=== PATIENT | male | born 1955 | race Caucasian/White ===

== ENCOUNTER → 2016-07-02 | Outpatient (CLI) | payer OTHER ==
[~2016-07-02] MED LIST: ACET1TAB84 PO; AMLO-110 PO; ATV/1 PO; CLOTLOT2 TOP; CLR10 PO; DEXT5LIQ23 PO; FLUO20CA35 PO; HYDR25TA4 PO; IMD/2 PO; LORA-741 PO; LOSA50TA6 PO; MELO7.5T5 PO; METO50TA7 PO; ONDA4TAB10 SL; PERP1TAB PO; POTA10CA28 PO; THIO1CAP PO
[2016-07-02 17:18] LABS: BLOOD UREA NITROGEN 17 mg/dl (7-18); BUN/CREATININE RATIO 16.9 (10-20); CALCIUM 8.9 mg/dl (8.5-10.1); CARBON DIOXIDE 27 mmol/L (21-32); CHLORIDE 100 mmol/L (98-107); GLUCOSE 94 mg/dl (70-99); MAGNESIUM 2.1 mg/dl (1.8-2.4); POTASSIUM 3.7 mmol/L (3.5-5.1); SODIUM 137 mmol/L (136-145)
== END | disposition home or self-care (01) ==
LOC: C.LAB1850 10:49
PROVIDERS: ATTEND Internal Medicine Nephrology
DX: E87.1 Hypo-osmolality and hyponatremia (principal)

== ENCOUNTER 2016-07-13 18:39 | Emergency (ER) | payer OTHER ==
[~2016-07-13] VITALS: Ht 170.2 cm; Wt 97.7 kg
[~2016-07-13 18:39] MED LIST changes: -ACET1TAB84 PO; -AMLO-110 PO; -ATV/1 PO; -CLR10 PO; -DEXT5LIQ23 PO; -HYDR25TA4 PO; -IMD/2 PO; -LORA-741 PO; -MELO7.5T5 PO; -METO50TA7 PO; -ONDA4TAB10 SL; -PERP1TAB PO; -POTA10CA28 PO
[2016-07-13 18:40] VITALS: TEMP 37.1; Ht 170.2 cm; Wt 97.7 kg
[2016-07-13] MEDS ORDERED: LORAZEPAM 2 MG/ML 1 ML VIAL IV STA (18:45)
[2016-07-13] MEDS ORDERED: SODIUM CHLORIDE 0.9% 1000ML 1,000 ML IV STA (18:45)
[2016-07-13] MEDS ORDERED: ONDANSETRON INJ 2 MG/ML 2 ML VIAL IV STA (18:45)
--- NOTE | 2016-07-13 19:11 | DIAGNOSTIC IMAGING REPORT ---
SINGLE VIEW CHEST CLINICAL HISTORY: Atypical chest pain. Nausea and vomiting FINDINGS: An AP, portable, upright chest radiograph is obtained. No prior studies are available for comparison at the time of dictation. The examination is significantly degraded by portable technique and patient rotation. The heart is enlarged and there is pulmonary vascular congestion. No airspace consolidation, large pleural effusion, or pneumothorax is seen. The skeletal structures are osteopenic. The bony thorax is grossly intact. IMPRESSION: Cardiomegaly with evidence of congestive failure. Electronically signed by: Haile Zavaleta M.D. 07/13/2016 7:09 PM Dictated Date/Time: 07/13/2016 7:08 PM
[2016-07-13] MEDS ORDERED: FLUO20CA35 PO (19:28)
[2016-07-13] MEDS ORDERED: LOSA50TA6 PO (19:28)
[2016-07-13] MEDS ORDERED: LORA-741 PO (19:28)
[2016-07-13] MEDS ORDERED: DEXT5LIQ23 PO (19:28)
[2016-07-13] MEDS ORDERED: CLR10 PO (19:28)
[2016-07-13] MEDS ORDERED: IMD/2 PO (19:28)
[2016-07-13] MEDS ORDERED: POTA10CA28 PO (19:28)
[2016-07-13] MEDS ORDERED: ATV/1 PO (19:28)
[2016-07-13] MEDS ORDERED: METO50TA7 PO (19:28)
[2016-07-13] MEDS ORDERED: AMLO-110 PO (19:28)
[2016-07-13] MEDS ORDERED: ACET1TAB84 PO (19:28)
[2016-07-13] MEDS ORDERED: HYDR25TA4 PO (19:28)
[2016-07-13] MEDS ORDERED: PERP1TAB PO (19:28)
[2016-07-13] MEDS ORDERED: MELO7.5T5 PO (19:28)
[2016-07-13 19:35] LABS: BASO % 0.1 %; BASO ABS # 0.02 K/uL (0-0.2); COMPLETE YES; EOS % 0.4 %; HEMATOCRIT 37.8 % (42-52); IG% 0.3 %; LYMPH % 10.2 %; LYMPH ABS # 1.38 K/uL (1.2-3.4); MEAN CELL VOLUME 82.7 fL (80-100); MEAN CORPUSCULAR HEMOGLOBIN 30.4 pg (25-34); MEAN CORPUSCULAR HGB CONC 36.8 g/dl (32-36); MEAN PLATELET VOLUME 9.4 fL (7.4-10.4); MONO % 5.2 %; NEUT % 83.8 %; PLATELET COUNT 224 K/uL (130-400); RED BLOOD COUNT 4.57 M/uL (4.7-6.1); WHITE BLOOD COUNT 13.48 K/uL (4.8-10.8)
[2016-07-13 19:56] LABS: ALT/SGPT 29 U/L (12-78); AST/SGOT 22 U/L (15-37); BLOOD UREA NITROGEN 15 mg/dl (7-18); BUN/CREATININE RATIO 15.1 (10-20); CALCIUM 8.7 mg/dl (8.5-10.1); CARBON DIOXIDE 28 mmol/L (21-32); CHLORIDE 92 mmol/L (98-107); CREATININE 0.99 mg/dl (0.60-1.40); GLUCOSE 116 mg/dl (70-99); POTASSIUM 3.2 mmol/L (3.5-5.1); SODIUM 129 mmol/L (136-145)
[2016-07-13 20:02] LABS: ALKALINE PHOSPHATASE 78 U/L (45-117); CKMB/CK RATIO 1.5 (0-3.0)
--- NOTE | 2016-07-13 20:21 | EMERGENCY ROOM VISIT NOTE ---
History Report prepared by Carolina: Asad Giraldo Under the Supervision of: Dr. Segundo Pavon M.D. First contact with patient: 18:40 Stated Complaint: NAUSEA, VOMITING, ANXIETY History of Present Illness The patient is a 61 year old male with MR who presents to the Emergency Room with complaints of sudden anxiety beginning several hours prior to arrival. He associates dizziness, nausea, and vomiting with today's symptoms. As per EMS, the patient has appeared for agitated than usual. He notes the patient went from 0.5 mg Lorazepam a day to a total of 1.5 mg Lorazepam a day that is split into a 1 mg and 0.5 mg dose. The patient notes he had a headache earlier today at work, but it has resolved. He denies abdominal pain. 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 Review of Systems See HPI for pertinent positives & negatives. A total of 10 systems reviewed and were otherwise negative. Past Medical & Surgical Medical Problems: (1) Benign hypertension (2) Mental retardation Family History Patient reports no known family medical history. Social History Alcohol Use: none Drug Use: none Marital Status: single Housing Status: lives with family Occupation Status: employed Current/Historical Medications Scheduled Amlodipine (Norvasc), 7.5 MG PO QAM Fluoxetine (Prozac), 20 MG PO QAM Hydrochlorothiazide (Hctz), 25 MG PO DAILY Loperamide Hcl (Imodium), 2 MG PO UD Loratadine (Claritin), 10 MG PO DAILY Lorazepam (Ativan), 1 MG PO QAM Lorazepam (Ativan), 0.5 MG PO PM Losartan Potassium (Cozaar), 50 MG PO QAM Meloxicam (Mobic), 7.5 MG PO BID Metoprolol Succ (Toprol Xl) (Toprol-Xl), 50 MG PO DAILY Ondasetron Odt (Zofran Odt), 4 MG SL Q6H Perphenazine (Trilafon), 8 MG PO BID Potassium Chloride (Micro-K Ext Rel), 10 MEQ PO BID Scheduled PRN Acetaminophen (Tylenol Arthritis Ext Rel), 650 MG PO Q6H PRN for Pain Dextromethorphan Polistirex (Delsym), 10 ML PO Q12H PRN for Cough Physical Exam Vital Signs Date Time Temp Pulse Resp B/P Pulse Ox O2 Delivery O2 Flow Rate FiO2 07/13/16 20:59 63 22 136/74 98 07/13/16 18:40 37.1 61 22 156/92 98 Room Air Physical Exam GENERAL: Patient is very anxious appearing and in moderate distress. HEENT: No acute trauma, normocephalic atraumatic, mucous membranes moist, no nasal congestion, no scleral icterus. NECK: No stridor, no adenopathy, no meningismus, trachea is midline. LUNGS: Tachypneic. Clear to auscultation and equal bilaterally. No wheeze, no rhonchi. HEART: Regular rate and rhythm. No murmurs, rubs, gallops appreciated. ABDOMEN: Soft, nontender, bowel sounds positive, no masses appreciated, no peritonitis. BACK: No midline tenderness, no CVA tenderness EXTREMITIES: Normal motion all extremities, no cyanosis, no edema. NEUROLOGIC: Anxious appearing. MR. Alert and oriented. SKIN: No rash, no jaundice, no diaphoresis. Medical Decision & Procedures ER Provider Diagnostic Interpretation: X ray results are stated below per my interpretation and the radiologist's interpretation. SINGLE VIEW CHEST CLINICAL HISTORY: Atypical chest pain. Nausea and vomiting FINDINGS: An AP, portable, upright chest radiograph is obtained. No prior studies are available for comparison at the time of dictation. The examination is significantly degraded by portable technique and patient rotation. The heart is enlarged and there is pulmonary vascular congestion. No airspace consolidation, large pleural effusion, or pneumothorax is seen. The skeletal structures are osteopenic. The bony thorax is grossly intact. IMPRESSION: Cardiomegaly with evidence of congestive failure. Electronically signed by: Haile Zavaleta M.D. 07/13/2016 7:09 PM Laboratory Results 07/13/16 19:20 Red Blood Count 4.57, Mean Corpuscular Volume 82.7, Mean Corpuscular Hemoglobin 30.4, Mean Corpuscular Hemoglobin Concent 36.8, Mean Platelet Volume 9.4, Neutrophils (%) (Auto) 83.8, Lymphocytes (%) (Auto) 10.2, Monocytes (%) (Auto) 5.2, Eosinophils (%) (Auto) 0.4, Basophils (%) (Auto) 0.1, Neutrophils # (Auto) 11.29, Lymphocytes # (Auto) 1.38, Monocytes # (Auto) 0.70, Eosinophils # (Auto) 0.05, Basophils # (Auto) 0.02 07/13/16 19:20 Test 07/13/16 19:20 White Blood Count 13.48 K/uL (4.8-10.8) Red Blood Count 4.57 M/uL (4.7-6.1) Hemoglobin 13.9 g/dL (14.0-18.0) Hematocrit 37.8 % (42-52) Mean Corpuscular Volume 82.7 fL (80-100) Mean Corpuscular Hemoglobin 30.4 pg (25-34) Mean Corpuscular Hemoglobin Concent 36.8 g/dl (32-36) Platelet Count 224 K/uL (130-400) Mean Platelet Volume 9.4 fL (7.4-10.4) Neutrophils (%) (Auto) 83.8 % Lymphocytes (%) (Auto) 10.2 % Monocytes (%) (Auto) 5.2 % Eosinophils (%) (Auto) 0.4 % Basophils (%) (Auto) 0.1 % Neutrophils # (Auto) 11.29 K/uL (1.4-6.5) Lymphocytes # (Auto) 1.38 K/uL (1.2-3.4) Monocytes # (Auto) 0.70 K/uL (0.11-0.59) Eosinophils # (Auto) 0.05 K/uL (0-0.5) Basophils # (Auto) 0.02 K/uL (0-0.2) RDW Standard Deviation 42.0 fL (36.4-46.3) RDW Coefficient of Variation 13.9 % (11.5-14.5) Immature Granulocyte % (Auto) 0.3 % Immature Granulocyte # (Auto) 0.04 K/uL (0.00-0.02) Anion Gap 9.0 mmol/L (3-11) Est Creatinine Clear Calc Drug Dose 86.2 ml/min Estimated GFR () 94.2 Estimated GFR (Non- 81.3 BUN/Creatinine Ratio 15.1 (10-20) Calcium Level 8.7 mg/dl (8.5-10.1) Total Bilirubin 0.7 mg/dl (0.2-1) Direct Bilirubin 0.2 mg/dl (0-0.2) Aspartate Amino Transf (AST/SGOT) 22 U/L (15-37) Alanine Aminotransferase (ALT/SGPT) 29 U/L (12-78) Alkaline Phosphatase 78 U/L (45-117) Total Creatine Kinase 294 U/L (39-308) Creatine Kinase MB 4.3 ng/ml (0.5-3.6) Creatine Kinase MB Ratio 1.5 (0-3.0) Troponin I < 0.015 ng/ml (0-0.045) Pro-B-Type Natriuretic Peptide 388 pg/ml (0-900) Total Protein 6.8 gm/dl (6.4-8.2) Albumin 3.6 gm/dl (3.4-5.0) Lipase 192 U/L (73-393) Laboratory results as reviewed by me. Medications Administered Medications (Trade) Dose Ordered Sig/Hanane Route Start Time Stop Time Status Last Admin Dose Admin Lorazepam (Ativan Inj) 1 mg NOW STAT IV 07/13/16 18:45 07/13/16 18:46 DC 07/13/16 19:34 1 MG Ondansetron HCl (Zofran Inj) 4 mg NOW STAT IV 07/13/16 18:45 07/13/16 18:46 DC 07/13/16 19:34 4 MG Ondansetron HCl (ZOFRAN ODT 4MG Home Pack) 1 homepack UD ONCE PO 07/13/16 20:30 07/13/16 20:31 DC 07/13/16 20:42 1 HOMEPACK ECG Indication: vomiting Rate (beats per minute): 60 Rhythm: normal sinus Findings: no acute ischemic change, no ectopy, other (voltage criteria hypertrophy) ED Course 1841: The patient was evaluated in room B3B. A complete history and physical exam was performed. 1844: Ordered Zofran Inj 4 mg IV, Ativan inj 1 mg IV. 2009: Reevaluated the patient, and he is feeling much better. I discussed the pros and cons of admission with the family at bedside, and they would like the patient to go home. Discussed results and discharge instructions: He verbalized understanding and agreement. The patient is ready for discharge. 2030: Ordered Ondansetron HCl 1 homepack PO. Medical Decision Differential: Gastroenteritis, Food Borne, Esophageal Perforation, , Electrolyte Abnormality, Dehydration, Intraabdominal Infection, UTI/ Pyelonephritis, Bowel Obstruction, Biliary Pathology, amongst other pathology entertained. 61 yr old male from [place] arrives very upset after nausea/vomiting. Vastly improved with zofran/ativan. He is feeling better and wishes to go home. Monitored for 2 hours without issues. His labs reveal mild hyponatremia. I discussed watching him inpatient however he wishes to go home and brother comfortable with this. Will send home with some zofran as needed. I discussed need to follow upw tih PCP to discuss some mild congestive findings along with the low sodium. Aware that if worsening or other concerns RTED. I suspect this is norovirus that is going throughout community especially given multiple sick contacts. Impression Primary Impression: Nausea & vomiting Additional Impressions: Acute anxiety Acute hyponatremia Scribe Attestation The scribe's documentation has been prepared under my direction and personally reviewed by me in its entirety. I confirm that the note above accurately reflects all work, treatment, procedures, and medical decision making performed by me. Departure Information Dispostion Home / Self-Care Prescriptions Ondasetron Odt (ZOFRAN ODT) 4 Mg Tab 4 MG SL Q6H for Nausea, #20 TAB Prov: Segundo Pavon M.D. 07/13/16 Referrals Maximilian Schafer M.D. (PCP) Forms HOME CARE DOCUMENTATION FORM, IMPORTANT VISIT INFORMATION Patient Instructions My [facility] Additional Instructions Please have repeat labs done over the next week for further evaluation of low sodium. Return at any time if worsening symptoms or other concerns. Problem Qualifiers Primary Impression: Nausea & vomiting Vomiting type: unspecified Vomiting Intractability: unspecified Qualified Codes: R11.2 - Nausea with vomiting, unspecified
[2016-07-13] MEDS ORDERED: ONDANSETRON HOME PACK 4MG OD TAB PO ONE (20:30)
[2016-07-13] MEDS ORDERED: ONDA4TAB10 SL (20:39)
[2016-07-13 20:59] VITALS: BP 136/74; PULSE 63; O2SAT 98
== END 2016-07-13 21:01 | disposition home or self-care (01) ==
LOC: EDBD 18:39 → C.EDB 18:39
DX: R11.2 Nausea with vomiting, unspecified (principal); F41.9 Anxiety disorder, unspecified; E87.1 Hypo-osmolality and hyponatremia; I10 Essential (primary) hypertension; F79 Unspecified intellectual disabilities; Z79.899 Other long term (current) drug therapy

== ENCOUNTER → 2016-08-25 | Outpatient (CLI) | payer OTHER ==
[~2016-08-25] MED LIST changes: +ACET1TAB84 PO; +AMLO-110 PO; +ATV/1 PO; -CLOTLOT2 TOP; +CLR10 PO; +DEXT5LIQ23 PO; +HYDR25TA4 PO; +IMD/2 PO; +LORA-741 PO; +MELO7.5T5 PO; +METO50TA7 PO; +ONDA4TAB10 SL; +PERP1TAB PO; +POTA10CA28 PO; -THIO1CAP PO
[2016-08-25 10:42] LABS: ESTIMATED AVERAGE GLUCOSE 108 mg/dl; HA1C FLAG Normal (Normal)
[2016-08-25 11:19] LABS: ALT/SGPT 35 U/L (12-78); AST/SGOT 18 U/L (15-37); BLOOD UREA NITROGEN 13 mg/dl (7-18); BUN/CREATININE RATIO 11.8 (10-20); CALCIUM 8.5 mg/dl (8.5-10.1); CARBON DIOXIDE 30 mmol/L (21-32); CHLORIDE 103 mmol/L (98-107); GLUCOSE 101 mg/dl (70-99); POTASSIUM 3.5 mmol/L (3.5-5.1); SODIUM 140 mmol/L (136-145)
[2016-08-25 11:24] LABS: CHOLESTEROL 149 mg/dl (0-200); CHOLESTEROL/HDL RATIO 4.8; HDL CHOLESTEROL 31 mg/dl; LDL CHOLESTEROL CALCULATED 82 mg/dl; PHOSPHORUS 2.3 mg/dl (2.5-4.9); PROSTATE SPECIFIC ANTIGEN 0.975 ng/ml (0.000-4.000); TRIGLYCERIDES 179 mg/dl (0-150); VERY LOW DENSITY LIPOPROT CALC 36 mg/dl
--- NOTE | 2016-09-01 14:06 | CODING QUERY MEDICAL NECESSITY ---
SUPPORTING DIAGNOSIS NEEDED A supporting diagnosis is required for the test/procedure performed on this patient in order for us to be reimbursed by the patient's insurance. Please provide a supporting diagnosis for the following test/procedure listed below next to the test name along with your signature. *If there is no additional diagnosis for this patient that would support the following test/procedure please document that below next to the test/procedure. Test(s)/Procedure(s) that require a supporting diagnosis: * PSA DIAGNOSIS: * DOS: 08/25/16 Provider Signature: Date: Thank you Geneva Payan [facility] Information Management Once completed, please kindly fax back to [phone] For questions please call [phone]
== END | disposition home or self-care (01) ==
LOC: C.LAB1850 09:16
PROVIDERS: ATTEND Internal Medicine Nephrology
DX: Z00.00 Encounter for general adult medical examination without abnormal findings (principal); I10 Essential (primary) hypertension; R73.01 Impaired fasting glucose; E78.5 Hyperlipidemia, unspecified; E87.1 Hypo-osmolality and hyponatremia; Z12.5 Encounter for screening for malignant neoplasm of prostate

== ENCOUNTER → 2016-09-30 | Outpatient (CLI) | payer OTHER ==
[~2016-09-30] MED LIST changes: +GADAVIST IV PRN
--- NOTE | 2016-09-30 16:07 | DIAGNOSTIC IMAGING REPORT ---
MRI OF THE BRAIN WITHOUT AND WITH IV CONTRAST CLINICAL HISTORY: Cognitive and behavioral changes. Transient ischemic attack. Abnormal MRI. COMPARISON STUDY: MRI of the brain January 07, [address] December 29, 2012. TECHNIQUE: Utilizing a 1.5 Dolly magnet and dedicated coil, multiplanar, multiecho imaging of the brain was performed pre and postcontrast administration. IV administration of 9 mL of Gadavist contrast was uneventful. FINDINGS: This exam is mildly compromised by motion artifact. There are no areas restricted diffusion. No acute intracranial hemorrhage, midline shift or mass effect is present. Ventricular system is normal. Basilar cisterns are patent. There are no extra-axial collections. Flow-voids for the major intracranial vessels are present. There are no intracranial masses or areas of pathologic enhancement. There are several old lacunar infarcts within the left temporal lobe. Scattered white matter T2 hyperintense foci suggest small vessel disease. There are prominent perivascular spaces within the anterior left frontal lobe. Calvarial signal is maintained. IMPRESSION: 1. No acute intracranial findings. 2. No intracranial masses or pathologic enhancement. 3. Several old lacunar infarcts and mild small vessel disease. Electronically signed by: Sumit Funez M.D. 09/30/2016 4:05 PM Dictated Date/Time: 09/30/2016 4:00 PM
[2016-09-30 17:37] LABS: LYME DISEASE AB IGG NEG (NEG); LYME DISEASE AB IGM NEG (NEG)
--- NOTE | 2016-10-07 09:55 | CODING QUERY MEDICAL NECESSITY ---
CQSUPPORTING DIAGNOSIS NEEDED A supporting diagnosis is required for the test/procedure performed on this patient in order for us to be reimbursed by the patient's insurance. Please provide a supporting diagnosis for the following test/procedure listed below next to the test name along with your signature. *If there is no additional diagnosis for this patient that would support the following test/procedure please document that below next to the test/procedure. Test(s)/Procedure(s) that require a supporting diagnosis: DOS 09/30/16 VITAMIN B12 Provider Signature: Date: Thank you Anna Maciel Racemi Information Management Once completed, please kindly fax back to [phone] For questions please call [phone]
== END | disposition home or self-care (01) ==
LOC: C.MRI 14:55
PROVIDERS: ATTEND Psychiatry & Neurology Neurology
DX: R90.89 Other abnormal findings on diagnostic imaging of central nervous system (principal); R41.89 Other symptoms and signs involving cognitive functions and awareness; R46.89 Other symptoms and signs involving appearance and behavior; G45.9 Transient cerebral ischemic attack, unspecified

== ENCOUNTER → 2016-12-28 | Outpatient (CLI) | payer OTHER ==
[~2016-12-28] MED LIST changes: -GADAVIST IV PRN
[2016-12-28 15:15] LABS: BLOOD UREA NITROGEN 18 mg/dl (7-18); BUN/CREATININE RATIO 17.9 (10-20); CALCIUM 8.9 mg/dl (8.5-10.1); CARBON DIOXIDE 27 mmol/L (21-32); CHLORIDE 97 mmol/L (98-107); CREATININE 0.98 mg/dl (0.60-1.40); GLUCOSE 91 mg/dl (70-99); POTASSIUM 3.8 mmol/L (3.5-5.1); SODIUM 133 mmol/L (136-145)
== END | disposition home or self-care (01) ==
LOC: C.LAB1850 13:52
PROVIDERS: ATTEND Internal Medicine Nephrology
DX: E87.1 Hypo-osmolality and hyponatremia (principal); I10 Essential (primary) hypertension; E87.6 Hypokalemia

== ENCOUNTER 2017-09-04 07:43 | Emergency (ER) | payer OTHER ==
[~2017-09-04 07:43] MED LIST changes: -METO50TA7 PO; +METO50TA8 PO; -ONDA4TAB10 SL
[2017-09-04 07:46] VITALS: BP 150/76; PULSE 72; TEMP 37; O2SAT 96
--- NOTE | 2017-09-04 07:59 | EMERGENCY ROOM VISIT NOTE ---
History Report prepared by Carolina: Angella Tomas Under the Supervision of: Dr. Cayetano Dugan M.D. First contact with patient: 07:46 Chief Complaint: OTHER COMPLAINT Stated Complaint: ACCID. OVERDOSE History of Present Illness The patient is a 62 year old white male with a past medical history of hypertension and MR who presents to the ED with a cc of an accidental overdose beginning just prior to arrival. He was brought to the ED via EMS and history is limited secondary to the patients baseline mental status. EMS reports the patient lives in a [facility] and accidentally took medications laid out for another patient this morning, in addition to his own morning medications. EMS reports he took 5 mg Saphris, Metformin 1000, Levothyroxine 50 mcg, Escitalopram 20 mg, and some supplements. Negative fevers, abdominal pain, nausea, vomiting, weakness in the upper or lower extremities. 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 A limited number of systems were reviewed secondary to the patients baseline mental status and were otherwise negative. Past Medical & Surgical Medical Problems: (1) Benign hypertension (2) Mental retardation Family History Patient reports no known family medical history. Social History Smoking Status: Never Smoker Alcohol Use: none Drug Use: none Marital Status: single Housing Status: assisted living (usp) Occupation Status: employed Current/Historical Medications Scheduled Amlodipine (Norvasc), 7.5 MG PO QAM Fluoxetine (Prozac), 20 MG PO QAM Hydrochlorothiazide (Hctz), 25 MG PO DAILY Loperamide Hcl (Imodium), 2 MG PO UD Loratadine (Claritin), 10 MG PO DAILY Lorazepam (Ativan), 1 MG PO QAM Lorazepam (Ativan), 0.5 MG PO PM Losartan Potassium (Cozaar), 50 MG PO QAM Meloxicam (Mobic), 7.5 MG PO BID Metoprolol Succ (Toprol Xl) (Toprol-Xl), 50 MG PO DAILY Perphenazine (Trilafon), 8 MG PO BID Potassium Chloride (Micro-K Ext Rel), 10 MEQ PO BID Scheduled PRN Acetaminophen (Tylenol Arthritis Ext Rel), 650 MG PO Q6H PRN for Pain Dextromethorphan Polistirex (Delsym), 10 ML PO Q12H PRN for Cough Physical Exam Vital Signs Date Time Temp Pulse Resp B/P (MAP) Pulse Ox O2 Delivery O2 Flow Rate FiO2 09/04/17 07:46 37.0 72 16 150/76 96 Room Air Physical Exam GENERAL: Awake, alert, well-appearing, NAD HENT: Normocephalic, atraumatic. EYES: Normal conjunctiva. Sclera non-icteric. NECK: Supple. No nuchal rigidity. FROM. RESPIRATORY: CTAB, no rhonchi, wheezing, crackles CARDIAC: RRR, no MRG ABDOMEN: Soft, NTND, BS+ MSK: No chest wall TTP, no LE edema NEURO: GCS 15, CN 2-12 intact, moves all 4s on command SKIN: No rash or jaundice noted. Medical Decision & Procedures ECG Per My Interpretation Indication: toxicologic Rate (beats per minute): 59 Rhythm: sinus bradycardia Findings: other (normal intervals, normal axis, no STS changes or TWI) Change: Patient's electrocardiogram interpreted by me. ED Course 0752: The patient was evaluated in room B7. A complete history and physical exam was performed. 0802: I discussed the patients case with [facility]. They report agitation can occur in Saphris doses up to 400 mg. It can also cause QTC prolongation, but only at high doses, does not recommend any further evaluation or treatment. 0815: I reevaluated the patient. 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 I discussed the patients discharge instructions and they verbalized complete understanding and agreement. Medical Decision The patient is a 62 year old white male with a past medical history of hypertension and MR who presents to the ED with a cc of an accidental overdose beginning just prior to arrival. Triage Nursing notes reviewed. The patient's presentation and history were concerning for probable overdose. Differential diagnosis: Etiologies such as toxicologic, infection, hypoglycemia, electrolyte abnormalities, cardiac sources, intracerebral event, neurologic, as well as others were entertained. Prior records were reviewed. Patient was seen and evaluated the bedside. Patient is a and O 3 and does follow commands. Patient does not have any acute symptomatically complaints. Per nursing report the patient does live at a usp and had taken another resident's medications in addition to his own. This included supplements but also metformin and Saphris. An EKG was obtained which showed sinus bradycardia with normal intervals. I did discuss the case with poison control. They did not recommend any further evaluation or treatment at this time given the very low dose and lack of other symptoms. This was confirmed through nursing that he did not take any additional medications or pills other than the other residents in his own. Patient was deemed suitable for outpatient follow-up and treatment at this time. Patient was given strict follow-up, discharge, and return precautions. All questions were answered. Patient was deemed suitable for outpatient follow-up at this time. Patient agreed with the plan of care and was safely discharged home. Medication Reconcilliation Current Medication List: was personally reviewed by me Blood Pressure Screening Patient's blood pressure: Elevated blood pressure Blood pressure disposition: Elevated BP felt to be situational Consults Time Called: 0759 Consulting Physician: [facility] Returned Call: 08 I discussed the patients case with [facility]. They report agitation can occur in Saphris doses up to 400 mg. It can also cause QTC prolongation, but only at high doses, does not recommend any further evaluation or treatment. Impression Primary Impression: Accidental overdose Scribe Attestation The scribe's documentation has been prepared under my direction and personally reviewed by me in its entirety. I confirm that the note above accurately reflects all work, treatment, procedures, and medical decision making performed by me. Departure Information Dispostion Home / Self-Care Referrals Maximilian Schafer M.D. (PCP) Patient Instructions My [facility] Additional Instructions Please return to the emergency department if you have worsening or recurrent symptoms not amenable to at-home treatment. Please call for a follow-up appointment with her primary care physician. Please take your medications as prescribed. If you have other concerns and/or complaints please feel free to also call your primary care physician's office or return the ED for further evaluation, management, and treatment. Take your medications as prescribed. You have been examined and treated today on an emergency basis only. This is not a substitute for, or an effort to provide, complete comprehensive medical care. It is impossible to recognize and treat all injuries or illnesses in a single emergency department visit. It is therefore important that you follow up closely with [facility], your PCP, and/or your specialist(s). Call as soon as possible for an appointment. Thank you for your time and consideration. I look forward to speaking with you again soon. Please don't hesitate to call us if you have any questions.
== END 2017-09-04 08:17 | disposition home or self-care (01) ==
LOC: EDBD 07:43 → C.EDB 07:44
DX: T50.901A Poisoning by unspecified drugs, medicaments and biological substances, accidental (unintentional), initial encounter (principal); I10 Essential (primary) hypertension; F79 Unspecified intellectual disabilities; Z79.899 Other long term (current) drug therapy

== ENCOUNTER → 2017-11-01 | Outpatient (CLI) | payer OTHER ==
[2017-11-01 10:31] LABS: ALBUMIN 3.7 gm/dl (3.4-5.0); BLOOD UREA NITROGEN 25 mg/dl (7-18); CALCIUM 8.7 mg/dl (8.5-10.1); CARBON DIOXIDE 25 mmol/L (21-32); CREATININE 1.28 mg/dl (0.60-1.40); GLUCOSE 77 mg/dl (70-99); PHOSPHORUS 2.8 mg/dl (2.5-4.9); POTASSIUM 4.1 mmol/L (3.5-5.1); SODIUM 139 mmol/L (136-145)
== END | disposition home or self-care (01) ==
LOC: C.LAB 08:31
PROVIDERS: ATTEND Internal Medicine Nephrology
DX: E87.1 Hypo-osmolality and hyponatremia (principal)